=== PATIENT | female | born 1980 | race Caucasian/White ===

== ENCOUNTER 2019-02-19 23:38 | Emergency (ER) | payer OTHER ==
[2019-02-19] MEDS ORDERED: 0.9 % SODIUM CHLORIDE 1000ML 1,000 ML IV ONE (23:51)
[2019-02-19] MEDS ORDERED: ONDANSETRON HCL IV 4 MG/2 ML VIAL IVP ONE (23:59)
[2019-02-19] MEDS ORDERED: KETOROLAC 30 MG/ML VIAL IVP ONE (23:59)
--- NOTE | 2019-02-19 23:59 | Emergency Department Record ---
History of Present Illness - General Chief Complaint: Abdominal Pain Stated Complaint: ABDOMINAL PAIN AND VOMITING X 4 DAYS Time Seen by Provider: 02/19/19 23:50 Source: Patient Mode of Arrival: Ambulatory Limitations: No limitations - History of Present Illness Initial Comments: 38 yo female presents with left sided abdominal pain since Thursday. The symptoms started with nausea. She has had some associated dry heaves. No fever. No dysuria or flank pain. She developed pain in the LUQ that has now become persistent. She is having more frequent, softer bowel movements. No blood in the stools. No rash. No history of GI disease. No back or flank pain. 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 She has had her gall bladder removed and three C sections. MD Complaint: Abdominal pain Location: LUQ Radiation: LUQ Migration to: LUQ Severity: Moderate Quality: Aching, Sharp Consistency: Constant Improves With: Nothing Worsens With: Eating Context: Other Associated Symptoms: Diarrhea - Related Data Home Medications Medication Instructions Recorded Confirmed Last Taken Labetalol HCl 200 mg PO BID 02/20/19 02/20/19 02/19/19 Lisinopril [Zestril] 5 mg PO DAILY 02/20/19 02/20/19 02/19/19 Metformin HCl 500 mg PO BID 02/20/19 02/20/19 02/19/19 Montelukast Sodium [Singulair] 20 mg PO DAILY 02/20/19 02/20/19 02/19/19 Previous Rx's Medication Instructions Recorded Ondansetron [Zofran Odt] 4 mg PO Q8H #15 tab.rapdis 02/20/19 Allergies Allergy/AdvReac Type Severity Reaction Status Date / Time No Known Drug Allergies Allergy Verified 02/19/19 23:58 Review of Systems Constitutional: Denies: Chills, Fever, Malaise, Weakness Eyes: Denies: Eye discharge, Vision change ENT: Denies: Congestion, Throat pain Respiratory: Denies: Cough, Dyspnea Cardiovascular: Denies: Chest pain, Syncope Endocrine: Denies: Fatigue, Polydipsia, Polyuria Gastrointestinal: Reports: Abdominal pain, Diarrhea, Nausea, Vomiting. Denies: Constipation, Hematemesis, Hematochezia, Melena Genitourinary: Denies: Dysuria, Frequency, Hematuria, Urgency Musculoskeletal: Denies: Arthralgia, Back pain, Neck pain Skin: Denies: Bruising, Change in color, Rash Neurological: Denies: Headache Psychiatric: Denies: Anxiety Hematological/Lymphatic: Denies: Easy bleeding, Easy bruising Physical Exam - General General Appearance: Alert, Oriented x3, Cooperative, No acute distress Limitations: No limitations - Head Head exam: Atraumatic, Normal inspection - Eye Eye exam: Normal appearance, PERRL. negative: Conjunctival injection, Scleral icterus - ENT ENT exam: Normal exam, Mucous membranes moist Ear exam: Normal external inspection Nasal Exam: Normal inspection Mouth exam: Normal external inspection - Neck Neck exam: Normal inspection - Respiratory Respiratory exam: Normal lung sounds bilaterally. negative: Respiratory distress, Rhonchi, Stridor, Wheezes - Cardiovascular Cardiovascular Exam: Regular rate, Normal rhythm, Normal heart sounds - GI/Abdominal GI/Abdominal exam: Soft, Tenderness (Soft abdomen but tender left mid to left upper quadrant). negative: Distended, Guarding, Hypoactive bowel sounds, Rebound, Rigid - Rectal Rectal exam: Deferred - exam: Deferred - Extremities Extremities exam: Normal inspection. negative: Pedal edema, Tenderness - Back Back exam: Reports: Full ROM. Denies: CVA tenderness (R), CVA tenderness (L), Paraspinal tenderness, Tenderness - Neurological Neurological exam: Alert, Oriented X3 - Psychiatric Psychiatric exam: Normal affect, Normal mood - Skin Skin exam: Dry, Intact, Normal color, Warm Course - Reevaluation(s) Reevaluation #1: 02/20/19 00:52 The CBC was reviewed No acute abnormality The CMP was reviewed The K is 3.2. Replacement ordered The remainder of the CMP as negative The Lipase is 81 02/20/19 01:38 The UA is negative The CT scan report was reviewed. No acute process. Left adnexal cystic area. Likely physiologic. Bilateral renal cysts. Otherwise unremarkable examination. 02/20/19 01:46 We discussed the results of the tests and questions were answered. The patient is doing well and is comfortable with DC. DC vitals were reviewed. We discussed at length reasons to immediately return to the ED as well as close follow up for the abdominal pain and changes in stools She was given Zofran RX. The patient will call the PCP for close follow up of this ED visit to review this visit and the tests performed She was given a copy of the labs, UA and CT results to discuss with her doctor Medical Decision Making - Lab Data Result diagrams: 02/20/19 00:17 02/20/19 00:17 Disposition Disposition: Discharge Clinical Impression: Abdominal pain Qualifiers: Abdominal location: left upper quadrant Qualified Code(s): R10.12 - Left upper quadrant pain Disposition: Home, Self-Care Condition: (1) Good Instructions: Abdominal Pain (ED) Additional Instructions: Review this ER visit and the tests performed with your family doctor You may need a follow up ultrasound if the pain occurs in the lower left area Call your doctor for the next available follow up appointment first of the week Return to the ER for a recheck immediately if worse, any new concerns or questions Take the prescriptions provided as directed for nausea Benson diet the next 2 days Prescriptions: Ondansetron [Zofran Odt] 4 mg PO Q8H #15 tab.rapdis Forms: Patient Portal Access Time of Disposition: 01:47 Quality - Quality Measures Quality Measures: N/A - Blood Pressure Screening Does Patient Have Any of the Following: No Blood Pressure Classification: Pre-Hypertensive BP Reading Systolic Measurement: 135 Diastolic Measurement: 87 Screening for High Blood Pressure: < Pre-Hypertensive BP, F/U Documented > [[id number]] Pre-Hypertensive Follow-up Interventions: Referral to alternative/primary care provider.
[2019-02-20 00:25] LABS: ABSOLUTE NEUTROPHIL COUNT 5.81; BASO % 0.4 % (0-6); EOS % 3.2 % (0-6); GRAN % 56.4 % (47-80); LYMPH % 32.8 % (16-45); MEAN CORPUSCULAR HEMOGLOBIN 26.2 pg (27-33); MEAN CORPUSCULAR HGB CONC 31.6 g/dl (32-36); MEAN PLATELET VOLUME 9.7 fl (7.4-10.4); MONO % 7.2 % (0-9); PLATELET COUNT 307 K/uL (130-400); RED BLOOD COUNT 4.58 M/uL (3.80-5.40); RED CELL DISTRIBUTION WIDTH 13.9 % (11.5-14.5); WHITE BLOOD COUNT W/O DIFF 10.3 K/uL (4.2-12.2)
[2019-02-20 00:37] LABS: BLOOD UREA NITROGEN 14 mg/dL (6-20); CREATININE 0.9 mg/dL (0.5-0.9); EST GLOMERULAR FILTRATION RATE > 60 mL/min; LIPASE 81 U/L (13-60); TOTAL PROTEIN 7.2 g/dL (6.6-8.7)
[2019-02-20 00:39] LABS: GLUCOSE,RANDOM 132 mg/dL (74-109)
[2019-02-20 00:42] LABS: ALB/GLOB RATIO 1.6 (1.1-1.8); ALBUMIN 4.4 g/dL (4.0-5.0); ALKALINE PHOSPHATASE 60 U/L (35-104); ALT/SGPT 17 U/L (<33); AST/SGOT 20 U/L (10.0-35.0)
[2019-02-20] MEDS ORDERED: POTASSIUM CHLORIDE 20 MEQ TABLET PO ONE (00:51)
[2019-02-20] MEDS ORDERED: SOD CHLOR 0.9% WITH KCL 40MEQ 40 MEQ/1,000 ML IV.SOLN IV ONE (01:02)
[2019-02-20 01:28] LABS: URINE APPEARANCE CLEAR; URINE BILIRUBIN NEGATIVE (NEGATIVE); URINE BLOOD TRACE-I (NEGATIVE); URINE COLOR YELLOW; URINE GLUCOSE (UA) NEGATIVE (NEGATIVE); URINE KETONE NEGATIVE (NEGATIVE); URINE LEUKOCYTE ESTERASE NEGATIVE (NEGATIVE); URINE NITRITE NEGATIVE (NEGATIVE); URINE PROTEIN NEGATIVE (NEGATIVE); URINE UROBILINOGEN 0.2 E.U./dL (0.20 - 1.00)
--- NOTE | 2019-02-20 01:32 | CT SCAN REPORT ---
EXAMINATION: CT Abdomen and Pelvis with IV Contrast EXAM DATE: 02/20/2019 1:08 AM TECHNIQUE: CT imaging of the abdomen and pelvis was performed with intravenous contrast. Coronal and sagittal images were reconstructed. IV Contrast: The amount and type of contrast are recorded in the medical record. INDICATION: LUQ pain vomiting 4 days COMPARISON: None ENCOUNTER: Not applicable CT ABDOMEN AND PELVIS FINDINGS: Lung Bases: Included extent of the lung bases are clear. Hepatobiliary: The liver has a normal size with a smooth surface. The hepatic and portal veins appear patent. The gallbladder is absent. There is no biliary dilatation. Pancreas: The pancreas is normal. Spleen: The spleen is not enlarged. Adrenals: The adrenal glands are normal. Gastrointestinal: The stomach and small bowel are normal with no obstruction or inflammation. The nayan endix is normal. The large bowel is normal. Reproductive Organs: There is a left adnexal cystic structure measuring 2.1 cm. There is an IUD in pl [place]. Otherwise unremarkable. Lymphatic System: There is no adenopathy within the abdomen or pelvis. Vasculature: Normal caliber abdominal aorta. Peritoneum: No free fluid, free air, or inflammation IMPRESSION: 1. There is a left adnexal cystic structure which is likely physiologic, but possibly a source of pa in. If further characterization is needed a nonemergent follow-up with ultrasound may be of benefit. 2. Bilateral renal cysts. 3. Status post cholecystectomy. 4. Otherwise unremarkable examination. Dictated by: Rama Murdock MD on 02/20/2019 1:26 AM. .
[2019-02-20 01:36] LABS: HCG,QUALITATIVE URINE NEGATIVE (NEGATIVE); URINE EPITHELIAL CELLS 0 - 2 (FEW); URINE RBC 0 - 2 (NONE SEEN); URINE WBC NONE SEEN (0-2/hpf)
[2019-02-20] MEDS ORDERED: ONDANSETRON 4 MG ODT TABLET SL ONE (01:47)
== END 2019-02-20 02:00 | disposition home or self-care (01) ==
LOC: ER 23:38
DX: R10.12 Left upper quadrant pain (principal); R19.7 Diarrhea, unspecified; R11.0 Nausea; Q61.02 Congenital multiple renal cysts
CPT/HCPCS: 74177; 80053; 81001; 81025; 83690; 85025; 96361; 96365; 96375; 99284; J1885; J2405; J7030